=== PATIENT | male | born 1945 | race Caucasian/White ===

== ENCOUNTER 2024-08-13 15:44 | Outpatient (AMB) | payer MEDICARE, SELFPAY ==
--- NOTE | 2024-08-13 15:47 | HO.NEPHOV_ITS ---
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 He dominantly lived his life in [place]. When he was living in [place], during his early adulthood, he had a CT scan of the abdomen for an unrelated event and was told that he had one small kidney. He is unsure whether he had a congential dysplastic kidney but never had a diagnosis of reflux nephropathy. He does not give a H/O recurrent UTI during his infancy or roller mechanic. He does not recollect doing any work during his early adulthood to find out how much function has he got in his small kidney. He has H/O hypertension and has been on lisinopril which has been keeping his BP at goal. He now is a diabetic and is on Glipizide, Januvia, metformin and Jardiance. His A1c is acceptable. He has been having sciatica and has H/O excessive NSAID intake while being on ACEI. He has dyslipidemia and is on statins. Lately his serum creatinine has gone up from his baseline. He denies chest pain, nausea, cardiac arrythmias, vomiting, diarrhea, PND, orthopnea, pedal edema, H/O CAD, carotid stenosis, CVA, CHF, PAD. He never had significant vascular disease and has not had Doppler of his renal arteries to see whether he has atherosclerotic DOROTEO. He is very closely followed up by his PCP. He has H/O hearing loss but no M/S hematuria or family H/O Alport syndrome. He has no H/O hypercalcemia , paraproteinemia , renal calculus or gout. He denied any epistaxis, recurrent sinusitis, hemoptysis, H/O cancer or orthostatic symptoms. He did not have any specific systemic complaint at the time of this office visit. [facility] Medical History (Updated 08/23/24 @ 09:02 by Og Higgins MD) Sciatica Impotence Hearing loss Macular degeneration Kidney agenesis Hypertension Diabetes High cholesterol Arthritis Surgical History History of back surgery H/O left knee surgery H/O shoulder surgery Family History (Updated 08/13/24 @ 15:49 by Apolonia Lott MA) Mother Diabetes Hypertension Father Diabetes Hypertension Social History (Updated 08/13/24 @ 15:48 by Apolonia Lott MA) Alcohol intake: current Comment: Very little Patient Tobacco Use Status: Never used Tobacco Review of Systems Const All systems reviewed & are unremarkable except as noted in HPI and below Physical Exam Vital Signs: Last Vital Signs Pulse 86 08/13/24 15:54 BP 110/62 08/13/24 15:54 Pulse Ox 97 08/13/24 15:54 Oxygen Delivery Method Room Air 08/13/24 15:54 BMI result Body Mass Index 26.5 Const General: comfortable and no acute distress HEENT Head: Yes normocephalic Mouth: Normal oral and palatal mucosa present Eyes EOM: EOMs intact bilaterally Neck Neck: Yes supple Resp Auscultation: clear to auscultation bilaterally Cardio Jugular venous distension: no JVD Rate: regular rate GI Palpation (GI): Soft to palpation Auscultation: normal bowel sounds General: Yes no CVA tenderness Back/Spine/Pelvis Back: no CVA tenderness Skin General skin exam: no rashes or lesions noted Neuro General: moves all extremities Extrem General: Yes no pedal edema Results Reviewed Nephrology Results: No Data to Display Assessment & Plan Assessment & Plan (1) Hypertension: Code(s): I10 - Essential (primary) hypertension Category: Medical Qualifiers: Hypertension type: primary hypertension Qualified Code(s): I10 - Ess ential (primary) hypertension (2) CKD stage 3a, GFR 45-59 ml/min: Code(s): N18.31 - Chronic kidney disease, stage 3a Category: Medical Plan My Luty has 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 He has been on ACEI which has been keeping his BP at goal but he was taking excess NSAID's while being on ACEI. He most likely had altered autoregulation in the kidney with resultant tubular injury with drop in GFR. He was never investigated as a child to delineate whether he had reflux which led to the small kidney or born with a dysplastic kidney. He never had a renogram to identify the split function of the kidney. Whether he has any atherosclerotic DOROTEO in the renal artery of his functioning kidney is unclear but unlikely given stable GFR for a long time and being only on one medication for hypertension control. He is on statins anyway. His urine output is OK and there is no reason to suspect any obstruction causing rise in serum creatinine. He has no systemic symptoms or new medications which can cause AIN. He has DM and is on multiple medications including Jardiance. I asked him to have absolute abstinence from NSAID's especially having only one functioning good kidney and being on ACEI. We shall repeat blood work to see whether his serum creatinine will settle to baseline soon with the above measure. I have ordered some follow up blood work and plan to do a split function for his kidney as well as renal imaging & Doppler of his renal artery with time. There is no reason to suspect any active ongoing glomerular issues causing drop in GFR. All these have been explained in detail. Time spent reviewing all his records, patient encounter, documentation included 61 minutes. Follow up appointment given Orders: Orders Blood Urea Nitrogen 3 Months N18.31 - Chronic kidney disease, stage 3a, I10 - Essential (primary) hypertension Calcium 3 Months N18.31 - Chronic kidney disease, stage 3a, I10 - Essential (primary) hypertension Immunofixation Pnl, Serum 3 Months N18.31 - Chronic kidney disease, stage 3a, I10 - Essential (primary) hypertension Creatinine 3 Months N18.31 - Chronic kidney disease, stage 3a, I10 - Essential (primary) hypertension Electrolytes 3 Months N18.31 - Chronic kidney disease, stage 3a, I10 - Essential (primary) hypertension Protein Creatinine Ratio, Ur 3 Months N18.31 - Chronic kidney disease, stage 3a, I10 - Essential (primary) hypertension Coding Level of Care Code New Pt Level 5 (38244) Diagnoses Primary hypertension I10 Hypertension type: primary hypertension CKD stage 3a, GFR 45-59 ml/min N18.31
[2024-08-13 15:54] VITALS: BP 110/62; PULSE 86; O2SAT 97; BMI 26.5
== END 2024-08-13 16:24 | disposition home or self-care (01) ==
PROVIDERS: PCP Internal Medicine; Referring Provider Internal Medicine; Visit Provider Internal Medicine Nephrology
DX: I10 Essential (primary) hypertension (principal); N18.31 Chronic kidney disease, stage 3a
CPT/HCPCS: 99205

== ENCOUNTER → 2024-08-13 15:44 | Outpatient (BNVA) | payer MEDICARE, SELFPAY | PROVIDERS: PCP Internal Medicine; Referring Provider Internal Medicine; Visit Provider Internal Medicine Nephrology | DX: I1A.0 Resistant hypertension (principal); N27.0 Small kidney, unilateral; N18.31 Chronic kidney disease, stage 3a; E78.5 Hyperlipidemia, unspecified; Z79.899 Other long term (current) drug therapy | CPT/HCPCS: 99202 ==

== ENCOUNTER 2024-11-17 14:28 | Outpatient (AMB) | payer MEDICARE, SELFPAY ==
--- NOTE | 2024-11-17 14:31 | HO.NEPHOV ---
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 He dominantly lived his life in [place]. When he was living in [place], during his early adulthood, he had a CT scan of the abdomen for an unrelated event and was told that he had one small kidney. He is unsure whether he had a congential dysplastic kidney but never had a diagnosis of reflux nephropathy. 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 He does not recollect doing any work during his early adulthood to find out how much function has he got in his small kidney. He has H/O hypertension and has been on lisinopril which has been keeping his BP at goal. He now is a diabetic and is on Glipizide, Januvia, metformin and Jardiance. His A1c is acceptable. He has been having sciatica and has H/O excessive NSAID intake while being on ACEI. He has dyslipidemia and is on statins. Lately his serum creatinine has gone up from his baseline. He denies chest pain, nausea, cardiac arrythmias, vomiting, diarrhea, PND, orthopnea, pedal edema, H/O CAD, carotid stenosis, CVA, CHF, PAD. He never had significant vascular disease and has not had Doppler of his renal arteries to see whether he has atherosclerotic DOROTEO. He is very closely followed up by his PCP. He has H/O hearing loss but no M/S hematuria or family H/O Alport syndrome. He has no H/O hypercalcemia , paraproteinemia , renal calculus or gout. He denied any epistaxis, recurrent sinusitis, hemoptysis, H/O cancer or orthostatic symptoms. He did not have any specific systemic complaint at the time of this office visit. [facility] Medical History (Updated 08/23/24 @ 09:02 by Og Higgins MD) Sciatica Impotence Hearing loss Macular degeneration Kidney agenesis Hypertension Diabetes High cholesterol Arthritis Surgical History History of back surgery H/O left knee surgery H/O shoulder surgery Family History Mother Diabetes Hypertension Father Diabetes Hypertension Social History Alcohol intake: current Comment: Very little Patient Tobacco Use Status: Never used Tobacco Review of Systems Const All systems reviewed & are unremarkable except as noted in HPI and below Physical Exam Vital Signs: Last Vital Signs Pulse 83 11/17/24 14:34 BP 104/60 11/17/24 14:34 Pulse Ox 96 11/17/24 14:34 Oxygen Delivery Method Room Air 11/17/24 14:34 BMI result Body Mass Index 26.1 Const General: comfortable and no acute distress Orientation/consciousness: patient oriented x3 HEENT Head: Yes normocephalic Mouth: Normal oral and palatal mucosa present Eyes EOM: EOMs intact bilaterally Neck Neck: Yes supple Resp Auscultation: clear to auscultation bilaterally Cardio Jugular venous distension: no JVD Rate: regular rate GI Palpation (GI): Soft to palpation Auscultation: normal bowel sounds General: Yes no CVA tenderness Back/Spine/Pelvis Back: no CVA tenderness Skin General skin exam: no rashes or lesions noted Neuro General: patient oriented x3 and moves all extremities Extrem General: Yes no pedal edema Results Reviewed Nephrology Results: No Data to Display Assessment & Plan Assessment & Plan (1) CKD stage 3a, GFR 45-59 ml/min: Code(s): N18.31 - Chronic kidney disease, stage 3a Category: Medical (2) Hypertension: Code(s): I10 - Essential (primary) hypertension Category: Medical Qualifiers: Hypertension type: primary hypertension Qualified Code(s): I10 - Essential (primary) hypertension Plan My Luty has 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 He has been on ACEI which has been keeping his BP at goal but he was taking excess NSAID's while being on ACEI. He most likely had altered autoregulation in the kidney with resultant tubular injury with drop in GFR which has improved now. He was never investigated as a child to delineate whether he had reflux which led to the small kidney or born with a dysplastic kidney. He never had a renogram to identify the split function of the kidney. Whether he has any atherosclerotic DOROTEO in the renal artery of his functioning kidney is unclear but unlikely given stable GFR for a long time and being only on one medication for hypertension control. He is on statins anyway. His urine output is OK and there is no reason to suspect any obstruction causing rise in serum creatinine. He has no systemic symptoms or new medications which can cause AIN. He has DM and is on multiple medications including Jardiance. I asked him to have absolute abstinence from NSAID's especially having only one functioning good kidney and being on ACEI. Follow up appointment given Orders: Orders Creatinine 6 Months I10 - Essential (primary) hypertension, N18.31 - Chronic kidney disease, stage 3a Electrolytes 6 Months I10 - Essential (primary) hypertension, N18.31 - Chronic kidney disease, stage 3a Blood Urea Nitrogen 6 Months I10 - Essential (primary) hypertension, N18.31 - Chronic kidney disease, stage 3a Coding Level of Care Code Est Pt Level 4 (19408) Diagnoses CKD stage 3a, GFR 45-59 ml/min N18.31 Primary hypertension I10 Hypertension type: primary hypertension
[2024-11-17 14:34] VITALS: BP 104/60; PULSE 83; O2SAT 96; BMI 26.1
--- OUTSIDE RECORDS SUMMARY | 2024-11-17 15:23 | XMS_ITS | Clinical Summary ---
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 Active multivitamin capsule Take 1 capsule by mouth daily. Active ALPRAZolam (XANAX) 0.5 MG tablet Take 0.5 mg by mouth nightly as needed. During travel Active quinapril (ACCUPRIL) 40 MG tablet TAKE 1 TABLET BY MOUTH EVERY DAY 90 tablet 3 08/07/2012 Active simvastatin (ZOCOR) 20 MG tablet TAKE 1 TABLET BY MOUTH EVERY DAY AT BED TIME 360 tablet 0 08/07/2012 Active metFORMIN (GLUCOPHAGE-XR) 500 MG 24 hr tablet TAKE 2 TABLETS BY MOUTH TWICE A DAY 180 tablet 0 04/29/2013 Active Active Problems Problem Noted Date Diagnosed Date Diabetes mellitus 05/19/2012 Hearing loss 05/19/2012 Hyperlipidemia 05/19/2012 BCE (basal cell epithelioma) 10/07/2009 Hypertension 10/07/1997 Fatty liver Resolved Problems Problem Noted Date Diagnosed Date Resolved Date Gout, 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 Immunizations Name Administration Dates Next Due DTaP 05/09/2009 Influenza, trivalent, injectable, contains prese rvative 07/06/2012 Pneumococcal polysaccharide PPSV23 10/07/2009 ZOSTER LIVE (Zostavax) 10/07/2009 Family History Medical History Relation Name Comments Prostate cancer Brother Diabetes Father Liver disease Father Failure Diabetes Mother Hypertension Mother Stroke Mother Diabetes Sister Relation Name Status Comments Brother Alive Father (Age 62) Mother (Age 74) Sister Alive Social History Tobacco Use Types Packs/Day Years Used Date Smoking Tobacco: Never Smokeless Tobacco: Never Alcohol Use Standard Drinks/Week Comments Yes 0.8 (1 standard drink = 0.6 oz p ure alcohol) Sex and Gender Information Value Date Recorded Sex Assigned at Not on file Legal Sex Male 7:27 AM EST Gender Identity Not on file Sexual Orientation Not on file Last Filed Vital Signs Vital Sign Reading Time Taken Comments Blood Pressure 124/80 08/06/2012 1:26 PM EDT Pulse 96 08/06/2012 1:26 PM EDT Temperature - - Respiratory Rate 16 08/06/2012 1:26 PM EDT Oxygen Saturation - - Inhaled Oxygen Concentration - - Weight 84.9 kg (187 lb 3.2 oz) 08/06/2012 1:26 P M EDT Height 175.3 cm (5' 9 ) 08/06/2012 1:26 PM EDT Body Mass Index 27.64 08/06/2012 1:26 PM EDT Plan of Treatment Health Maintenance Due Date Last Done Comments HIV screening 1958 Hepatitis C screening 1963 Lipid disorder screening 1985 Diabetes screening 1990 Shingles vaccine (Shingrix) (1 of 2 - Shingrix (RZV) 2 Dose Standard Series) 12/05/2009 Pneumo Vaccine 65+ (2 of 2 - PCV) 10/07/2010 010 Tetanus adult (Td q 10,TDAP once) 05/09/2019 009 RSV Discussion (1 - 1-dose 7 5+ series) 02/26/2020 Influenza vaccine 05/07/2024 07/06/2012 Covid-19 vaccine series (2023- season) 2024 Shingles vaccine (Zostavax) Discontinued 10/07/2009 Meningococcal Vaccine Aged Out No keely cj eligible based on patient's age to complete this topic Insurance [facility] MCR MGD
--- OUTSIDE RECORDS SUMMARY | 2024-11-17 15:23 | XMS_ITS | Clinical Summary ---
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 Name Role Phone Patrick Echeverria MD Primary Care Provider [phone] Social History Tobacco Use Types Packs/Day Years Used Date Smoking Tobacco: Never Assessed Sex and Gender Information Value Date Recorded Sex Assigned at Not on file Legal Sex Male 2:53 PM EDT Gender Identity Not on file Sexual Orientation Not on file Plan of Treatment Upcoming Encounters Date Type Department Care Team (Late st Contact Info) Description 12/11/2024 2:30 PM EST Office Visit [facility], [address] [place] [address] Gene Hudson MD [address] [place] [place] [id number] Health Maintenance Due Date Last Done Comments Hepatitis B Vaccine (1 of 3 - Risk 3-dose series) 02/05 Pneumococcal Vaccine: 65+ Years (2 of 2 - PCV) 011 10/07/2009 Influenza Vaccine (#1) 2024 Diabetes: Hemoglobin A1C 07/08/2024 Diabetes: Ophthalmology Exam 07/08/2024 Diabetes: Pedal Pulse Checked 07/08/2024 Diabetes: Sensory Foot Exam 07/08/2024 Diabetes: Visual Foot Exam 07/08/2024 Insurance [facility] ([id number]) Care Teams Injection Molding Machine Operator Relationship Specialty Start Date End Date Patrick Echeverria MD [address] PCP - General Internal Medicine 07/01/24
--- OUTSIDE RECORDS SUMMARY | 2024-11-17 15:23 | XMS_ITS | Encounter Summary ---
Author Organization [facility], Address [address] [place] [address] Phone Care Team Providers Care Reel Cutter Name Role Phone Patrick Echeverria MD Primary Care Provider [phone] Encounter Details Date Type Department Care Team (Late st Contact Info) Description 07/06/2024 Documentation Only [facility] [address] [place] [address] Molly Blake [place] [address] [place] [phone] Social History Tobacco Use Types Packs/Day Years Used Date Smoking Tobacco: Never Assessed Sex and Gender Information Value Date Recorded Sex Assigned at Not on file Legal Sex Male 2:53 PM EDT Gender Identity Not on file Sexual Orientation Not on file documented as of this encounter Plan of Treatment Upcoming Encounters Date Type Department Care Team (Late st Contact Info) Description 12/11/2024 2:30 PM EST Office Visit [facility] [address] [place] [address] Gene Hudson MD [address] [place] [address] [place] [address] documented as of this encounter Visit Diagnoses Not on filedocumented in this encounter Care Teams Reel Cutter Relationship Specialty Start Date End Date Patrick Echeverria MD [address] PCP - General Internal Medicine 07/01/24 documented as of this encounter
== END 2024-11-17 15:15 | disposition home or self-care (01) ==
PROVIDERS: PCP Internal Medicine; Visit Provider Internal Medicine Nephrology
DX: N18.31 Chronic kidney disease, stage 3a (principal); I10 Essential (primary) hypertension
CPT/HCPCS: 99214

== ENCOUNTER → 2024-11-17 14:28 | Outpatient (BNVA) | payer MEDICARE, SELFPAY | PROVIDERS: PCP Internal Medicine; Visit Provider Internal Medicine Nephrology | DX: I12.9 Hypertensive chronic kidney disease with stage 1 through stage 4 chronic kidney disease, or unspecified chronic kidney disease (principal); N18.31 Chronic kidney disease, stage 3a | CPT/HCPCS: 99212 ==

== ENCOUNTER 2025-06-10 15:18 | Outpatient (AMB) | payer MEDICARE, SELFPAY ==
--- NOTE | 2025-06-10 15:28 | HO.NEPHOV ---
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 He dominantly lived his life in [place]. When he was living in [place], during his early adulthood, he had a CT scan of the abdomen for an unrelated event and was told that he had one small kidney. He is unsure whether he had a congential dysplastic kidney but never had a diagnosis of reflux nephropathy. 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 He does not recollect doing any work during his early adulthood to find out how much function has he got in his small kidney. He has H/O hypertension and has been on lisinopril which has been keeping his BP at goal. He now is a diabetic and is on Glipizide, Januvia, metformin and Jardiance. His A1c is acceptable. He has been having sciatica and has H/O excessive NSAID intake while being on ACEI. He has dyslipidemia and is on statins. Lately his serum creatinine has gone up from his baseline. He denies chest pain, nausea, cardiac arrythmias, vomiting, diarrhea, PND, orthopnea, pedal edema, H/O CAD, carotid stenosis, CVA, CHF, PAD. He never had significant vascular disease and has not had Doppler of his renal arteries to see whether he has atherosclerotic DOROTEO. He is very closely followed up by his PCP. He has H/O hearing loss but no M/S hematuria or family H/O [place] syndrome. He has no H/O hypercalcemia , paraproteinemia , renal calculus or gout. He denied any epistaxis, recurrent sinusitis, hemoptysis, H/O cancer or orthostatic symptoms. He is grieving from his 's passing in May 2025. He did not have any specific systemic complaint at the time of this office visit [facility] Medical History (Updated 08/23/24 @ 09:02 by Og Higgins MD) Sciatica Impotence Hearing loss Macular degeneration Kidney agenesis Hypertension Diabetes High cholesterol Arthritis Surgical History History of back surgery H/O left knee surgery H/O shoulder surgery Family History Mother Diabetes Hypertension Father Diabetes Hypertension Social History Alcohol intake: current Comment: Very little Patient Tobacco Use Status: Never used Tobacco Review of Systems Const All systems reviewed & are unremarkable except as noted in HPI and below Physical Exam Vital Signs: Last Vital Signs Pulse 86 06/10/25 15:33 BP 90/50 L 06/10/25 15:33 Pulse Ox 96 06/10/25 15:33 Oxygen Delivery Method Room Air 06/10/25 15:33 BMI result Body Mass Index 25.3 Const General: comfortable and no acute distress Orientation/consciousness: patient oriented x3 HEENT Head: Yes normocephalic Mouth: Normal oral and palatal mucosa present Eyes EOM: EOMs intact bilaterally Neck Neck: Yes supple Resp Auscultation: clear to auscultation bilaterally Cardio Jugular venous distension: no JVD Rate: regular rate GI Palpation (GI): Soft to palpation Auscultation: normal bowel sounds General: Yes no CVA tenderness Back/Spine/Pelvis Back: no CVA tenderness Skin General skin exam: no rashes or lesions noted Neuro General: patient oriented x3 and moves all extremities Extrem General: Yes no pedal edema Assessment & Plan Assessment & Plan (1) CKD stage 3a, GFR 45-59 ml/min: Code(s): N18.31 - Chronic kidney disease, stage 3a Category: Medical (2) Hypertension: Code(s): I10 - Essential (primary) hypertension Category: Medical Qualifiers: Hypertension type: primary hypertension Qualified Code(s): I10 - Essential (primary) hypertension Plan My Luty has 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 He has been on ACEI which has been keeping his BP at goal but he was taking excess NSAID's while being on ACEI. He most likely had altered autoregulation in the kidney with resultant tubular injury with drop in GFR which has improved now. He was never investigated as a child to delineate whether he had reflux which led to the small kidney or born with a dysplastic kidney. He never had a renogram to identify the split function of the kidney. Whether he has any atherosclerotic DOROTEO in the renal artery of his functioning kidney is unclear but unlikely given stable GFR for a long time and being only on one medication for hypertension control. He is on statins anyway. His urine output is OK and there is no reason to suspect any obstruction causing rise in serum creatinine. He has no systemic symptoms or new medications which can cause AIN. He has DM and is on multiple medications including Jardiance. I asked him to have absolute abstinence from NSAID's especially having only one functioning good kidney and being on ACEI. NO changes made. Follow up appointment given Orders: Orders Vitamin D 25-OH Total 7 Months I10 - Essential (primary) hypertension, N18.31 - Chronic kidney disease, stage 3a Electrolytes 7 Months I10 - Essential (primary) hypertension, N18.31 - Chronic kidney disease, stage 3a Parathyroid Hormone Intact 7 Months I10 - Essential (primary) hypertension, N18.31 - Chronic kidney disease, stage 3a Phosphorus 7 Months I10 - Essential (primary) hypertension, N18.31 - Chronic kidney disease, stage 3a Calcium 7 Months I10 - Essential (primary) hypertension, N18.31 - Chronic kidney disease, stage 3a Blood Urea Nitrogen 7 Months I10 - Essential (primary) hypertension, N18.31 - Chronic kidney disease, stage 3a Creatinine 7 Months I10 - Essential (primary) hypertension, N18.31 - Chronic kidney disease, stage 3a Coding Level of Care Code Est Pt Level 4 (09800) Diagnoses CKD stage 3a, GFR 45-59 ml/min N18.31 Primary hypertension I10 Hypertension type: primary hypertension
[2025-06-10 15:33] VITALS: BP 90/50; PULSE 86; O2SAT 96; BMI 25.3
--- OUTSIDE RECORDS SUMMARY | 2025-06-10 16:19 | XMS_ITS | Clinical Summary ---
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 Immunizations Immunization Administration Dates Next Due DTaP 05/09/2009 Influenza, [...] Date Last Done Comments HIV screening 1958 Lipid disorder screening 1985 Diabetes screening 1990 Shingles vaccine (Shingrix) (1 of 2 - Shingrix (RZV) 2 Dose Standard Series) 12/05/2009 Pneumococcal Vaccine (50+ ye ars) (2 of 2 - PCV) 10/07/2010 10/07/2009 Tetanus adult (Td q 10,TDAP once) 05/09/2019 009 RSV Immunization (1 - 1-dose 75+ series) 02/26/2020 Covid-19 vaccine series ( season) 2024 Influenza vaccine 06/07/2025 07/06/2012 Colon cancer screening, Colonoscopy Discontinued 10/07/2004 Shingles vaccine (Zostavax) Discontinued 10/07/2009 Meningococcal B Vaccine Aged Out No l onger eligible based on patient's age to complete this topic Meningococcal Vaccine Aged Out No keely cj eligible based on patient's age to complete this topic Procedures Procedure Name Priority Date/Time Associated Diagnosis Comments HM COLONOSCOPY Routine 10/07/2004 from Last 3 Months or Most Recently Relevant to Health Maintenance Results * COLONOSCOPY (10/07/2004) Colonoscopy Normal, Renee us Historical Provider HEALTH MAINTENANCE Final Res ult from Last 3 Months or Most Recently Relevant to Health Maintenance [place] [address] [place] [address] MCR MGD
--- OUTSIDE RECORDS SUMMARY | 2025-06-10 16:19 | XMS_ITS | Encounter Summary ---
Author Organization [facility], Address [address] [place] [address] Phone Care Team Providers Care Trumpet Teacher Name Role Phone Patrick Echeverria MD Primary Care Provider [phone] Encounter Details Date Type Department Care Team (Late st Contact Info) Description 07/06/2024 Documentation Only [facility], [address] [place] [address] [address] [place] [id number] Social History Tobacco Use Types Packs/Day Years Used Date Smoking Tobacco: Never Assessed Sex and Gender Information Value Date Recorded Sex Assigned at Not on file Legal Sex Male 2:53 PM EDT Gender Identity Not on file Sexual Orientation Not on file documented as of this encounter Plan of Treatment Not on file documented as of this encounter Visit Diagnoses Not on filedocumented in this encounter Care Teams Trumpet Teacher Relationship Specialty Start Date End Date Patrick Echeverria MD [address] PCP - General Internal Medicine 07/01/24 documented as of this encounter
--- OUTSIDE RECORDS SUMMARY | 2025-06-10 16:19 | XMS_ITS | Clinical Summary ---
Author Organization [facility], Address [address] [place] [address] [place] [address] Phone Care Team Providers Care Couture Dressmaker Name Role Phone Patrick Echeverria MD Primary Care Provider [phone] Social History Tobacco Use Types Packs/Day Years Used Date Smoking Tobacco: Never Assessed Sex and Gender Information Value Date Recorded Sex Assigned at Not on file Legal Sex Male 2:53 PM EDT Gender Identity Not on file Sexual Orientation Not on file Plan of Treatment Health Maintenance Due Date Last Done Comments Hepatitis B Vaccine (1 of 3 - Risk 3-dose series) 02/05 Pneumococcal Vaccine: 50+ Years (2 of 2 - PCV) 011 10/07/2009 Diabetes: Hemoglobin A1C 07/08/2024 Diabetes: Ophthalmology Exam 07/08/2024 Diabetes: Pedal Pulse Checked 07/08/2024 Diabetes: Sensory Foot Exam 07/08/2024 Diabetes: Visual Foot Exam 07/08/2024 Influenza Vaccine (#1) 2025 Insurance Sonu [place]UF[place]PHISRAFA[place]A [id number] [facility] PPKelin Collazo([id number]) Care Teams Couture Dressmaker Relationship Specialty Start Date End Date Patrick Echeverria MD [address] PCP - General Internal Medicine 07/01/24
== END 2025-06-10 15:51 | disposition home or self-care (01) ==
LOC: HO.HKAS 15:19
PROVIDERS: PCP Internal Medicine; Visit Provider Internal Medicine Nephrology
DX: N18.31 Chronic kidney disease, stage 3a (principal); I10 Essential (primary) hypertension
CPT/HCPCS: 99214

== ENCOUNTER → 2025-06-10 15:18 | Outpatient (BNVA) | payer MEDICARE, SELFPAY | PROVIDERS: PCP Internal Medicine; Visit Provider Internal Medicine Nephrology | DX: N18.31 Chronic kidney disease, stage 3a (principal); I10 Essential (primary) hypertension | CPT/HCPCS: 99212 ==